=== PATIENT | male | born 1950 | race Two or more races ===

== ENCOUNTER 2017-08-23 05:40 | Emergency (ER) | payer OTHER ==
[~2017-08-23] VITALS: Ht 172.7 cm; Wt 76.2 kg
[~2017-08-23 05:40] MED LIST: ACIDOPHILUS CA1 EACH PO; ALBUTEROL0.63 MG/3; AVELOX ABC PAC400 MG; BUDEO.25; GLUCOPHAGE XR500 MG PO; LEVSIN/SL0.125 MG PO; SYNTHROID150 MCG; SYNTHROID175 MCG
[2017-08-23] MEDS ORDERED: SYMBICORT 16010.2 GM (05:46)
[2017-08-23] MEDS ORDERED: MEDROLPACK PO (23:08)
[2017-08-23] MEDS ORDERED: TESSALON PERLE100 M1 PO (23:08)
[2017-08-23] MEDS ORDERED: OSEL75CA PO (23:08)
== END 2017-08-23 23:04 | disposition home or self-care (01) ==
LOC: ER 05:40
DX: J09.X2 Influenza due to identified novel influenza A virus with other respiratory manifestations (principal); J45.901 Unspecified asthma with (acute) exacerbation

== ENCOUNTER 2023-04-07 15:47 | Inpatient (IN) | payer OTHER ==
[~2023-04-07] VITALS: Ht 175.3 cm; Wt 90.7 kg
[~2023-04-07 15:47] MED LIST changes: +MEDROLPACK PO; +OSEL75CA PO; +SYMBICORT 16010.2 GM; +TESSALON PERLE100 M1 PO
--- NOTE | 2023-04-07 16:19 | NUR ---
SE RECIBE PTE MASCULINO DE 72 ANOS ALERTA Y ORIENTADO X3 QUIEN AL MOEMNTO REFIERE DOLOR INTENSO EN ABDOMEN CUADRANTE INFERIOR DERECHO ANISHA A PALPACION SE OBSERBA ABDOMEN DISTENDIDO SE MONITOREAN S/V Y SE UBICA EN K7.
[2023-04-07 16:46] LABS: HEMATOCRIT 43.3 % (39.0-48.0); HEMOGLOBIN 14.3 g/dL (13-16.00); MEAN CELL VOLUME 89.3 fL (80.0-100.00); MEAN CORPUSCULAR HEMOGLOBIN 29.4 pg (27.00-32.0); MEAN CORPUSCULAR HGB CONC 32.9 g/dl (32.0-36.0); PLATELET COUNT 213 K/uL (150-450); RED BLOOD COUNT 4.85 M/uL (4.00-6.00); RED CELL DISTRIBUTION WIDTH 14.2 % (11.5-14.5)
[2023-04-07 17:01] LABS: PH,URINE 7.5 (5.0-8.0); URINE APPEARANCE Clear; URINE BILIRRUBIN Negative (NEGATIVE); URINE BLOOD Negative; URINE COLOR Dark Yellow; URINE GLUCOSE Negative (NEGATIVE); URINE LEUKOCYTE Small; URINE NITRATE Negative; URINE PROTEIN Trace (NEGATIVE)
[2023-04-07 17:02] LABS: URINE BACTERIA 53.1 uL (0.0-1933); URINE EPITHELIAL CELLS 6.1 uL (0.0-38.8); URINE RBC 13.4 uL (0.0-20.8); URINE WBC 52.1 uL (0.0-23.2)
[2023-04-07 17:09] LABS: ALBUMIN 2.8 gm/dL (3.4-5.0); BILIRUBIN TOTAL 1.13 mg/dL (0.3-1.2); CALCIUM 8.2 mg/dL (8.5-10.1); CREATININE SERUM 0.7 mg/dL (0.70-1.30); GFR 110.54; GLOBULINA 3.7 G/DL (2.4-3.5); TOTAL PROTEIN 6.5 gm/dL (6.4-8.2)
--- NOTE | 2023-04-07 17:10 | NUR ---
PTE EVALUADO POR MD [facility] [place] MED A PTE. SE EDUCA A PTE SOBRE EL MSIMO Y REFIERE ENTEDER. SE REALIZA VENOPUNCION BAJO MEDDIAS ACEPTICAS. PTE PEND A RESULTADOS DE LAB Y REALIZACION DE CT Y [place].
[2023-04-07 17:24] LABS: POTASSIUM 2.89 mEq/L (3.5-5.1)
[2023-04-08 01:15] LABS: INR 1.09; PARTIAL THROMBOPLASTIN TIME 29.1 SECONDS (22.0-34.0); PROTHROMBIN TIME 11.4 SECONDS (9.0-11.5)
[2023-04-08 07:22] LABS: ABG PH 7.396 (7.35-7.45); ABG PO2 58.4 mmHg (80-100); ABG pCO2 39.8 mmHg (35-45); SaO2 89.7 %
[2023-04-08 07:23] LABS: BASE EXCESS -0.8 mmol/l; BICARBONATE 23.9 mmol/l (23-25); Tco2 25.1 mmol/l; allen test SATISFACTORY; o2 21 %; puncture site RADIAL RIGHT
[2023-04-08 07:31] LABS: HEMATOCRIT 45.5 % (39.0-48.0); HEMOGLOBIN 15.7 g/dL (13-16.00); MEAN CELL VOLUME 88.4 fL (80.0-100.00); MEAN CORPUSCULAR HEMOGLOBIN 30.4 pg (27.00-32.0); MEAN CORPUSCULAR HGB CONC 34.4 g/dl (32.0-36.0); PLATELET COUNT 208 K/uL (150-450); RED BLOOD COUNT 5.15 M/uL (4.00-6.00); RED CELL DISTRIBUTION WIDTH 14.6 % (11.5-14.5)
[2023-04-08] MEDS ORDERED: SERTRALINE HCL25 MG (14:43)
[2023-04-08] MEDS ORDERED: PANTOPRAZOLE SO40 MG (14:43)
[2023-04-08] MEDS ORDERED: METHYLPREDNISOLO4 MG (14:43)
[2023-04-08] MEDS ORDERED: SYMBICORT 16010.2 GM (14:43)
[2023-04-08] MEDS ORDERED: DONEPEZIL HCL5 MG (14:43)
[2023-04-08] MEDS ORDERED: DICYCLOMINE HCL20 MG (14:43)
[2023-04-09 10:35] LABS: ABG PO2 76.9 mmHg (80-100); ABG pCO2 30.6 mmHg (35-45); BASE EXCESS -10.3 mmol/l; BICARBONATE 14.7 mmol/l (23-25); SaO2 92.9 %; Tco2 15.7 mmol/l; allen test SATISFACTORY; o2 21 %; puncture site RADIAL RIGHT
[2023-04-09 10:41] LABS: HEMATOCRIT 48.2 % (39.0-48.0); HEMOGLOBIN 15.7 g/dL (13-16.00); MEAN CELL VOLUME 91.2 fL (80.0-100.00); MEAN CORPUSCULAR HEMOGLOBIN 29.7 pg (27.00-32.0); MEAN CORPUSCULAR HGB CONC 32.6 g/dl (32.0-36.0); PLATELET COUNT 184 K/uL (150-450); RED BLOOD COUNT 5.29 M/uL (4.00-6.00); RED CELL DISTRIBUTION WIDTH 15.2 % (11.5-14.5)
[2023-04-09 11:11] LABS: ALBUMIN 1.9 gm/dL (3.4-5.0); BILIRUBIN TOTAL 0.59 mg/dL (0.3-1.2); CALCIUM 7.7 mg/dL (8.5-10.1); CREATININE SERUM 2.3 mg/dL (0.70-1.30); GFR 28.01; GLOBULINA 2.9 G/DL (2.4-3.5); POTASSIUM 4.19 mEq/L (3.5-5.1); TOTAL PROTEIN 4.8 gm/dL (6.4-8.2)
[2023-04-09 11:38] LABS: INR 1.26
[2023-04-09 17:09] LABS: ABG PH 7.258 (7.35-7.45); ABG PO2 84.3 mmHg (80-100); ABG pCO2 37.7 mmHg (35-45); BASE EXCESS 93.8 mmol/l; BICARBONATE -9.9 mmol/l (23-25); SaO2 93.8 %; Tco2 16.4 mmol/l; o2 17.6 %
[2023-04-09 17:10] LABS: allen test SATISFACTORY; puncture site RADIAL RIGHT
[2023-04-10 06:21] LABS: HEMATOCRIT 42.3 % (39.0-48.0); HEMOGLOBIN 14.6 g/dL (13-16.00); MEAN CELL VOLUME 88.2 fL (80.0-100.00); MEAN CORPUSCULAR HEMOGLOBIN 30.4 pg (27.00-32.0); MEAN CORPUSCULAR HGB CONC 34.5 g/dl (32.0-36.0); PLATELET COUNT 166 K/uL (150-450); RED BLOOD COUNT 4.79 M/uL (4.00-6.00); RED CELL DISTRIBUTION WIDTH 15.6 % (11.5-14.5)
[2023-04-10 07:35] LABS: ALBUMIN 1.7 gm/dL (3.4-5.0); BILIRUBIN TOTAL 0.38 mg/dL (0.3-1.2); CALCIUM 7.6 mg/dL (8.5-10.1); CREATININE SERUM 2.91 mg/dL (0.70-1.30); GFR 21.35; GLOBULINA 2.7 G/DL (2.4-3.5); MAGNESIUM 1.9 mg/dL (1.8-2.4); POTASSIUM 4.37 mEq/L (3.5-5.1); TOTAL PROTEIN 4.4 gm/dL (6.4-8.2)
[2023-04-11 06:28] LABS: HEMATOCRIT 41.2 % (39.0-48.0); HEMOGLOBIN 13.8 g/dL (13-16.00); MEAN CELL VOLUME 89.1 fL (80.0-100.00); MEAN CORPUSCULAR HEMOGLOBIN 29.8 pg (27.00-32.0); MEAN CORPUSCULAR HGB CONC 33.4 g/dl (32.0-36.0); PLATELET COUNT 166 K/uL (150-450); RED BLOOD COUNT 4.62 M/uL (4.00-6.00); RED CELL DISTRIBUTION WIDTH 15.5 % (11.5-14.5)
[2023-04-11 07:21] LABS: CALCIUM 7.8 mg/dL (8.5-10.1); CREATININE SERUM 1.37 mg/dL (0.70-1.30); GFR 50.93; POTASSIUM 3.42 mEq/L (3.5-5.1)
[2023-04-12 11:25] LABS: HEMATOCRIT 40.2 % (39.0-48.0); HEMOGLOBIN 13.7 g/dL (13-16.00); MEAN CORPUSCULAR HEMOGLOBIN 29.9 pg (27.00-32.0); PLATELET COUNT 165 K/uL (150-450); RED BLOOD COUNT 4.56 M/uL (4.00-6.00); RED CELL DISTRIBUTION WIDTH 15.6 % (11.5-14.5)
[2023-04-12 12:33] LABS: ALBUMIN 1.7 gm/dL (3.4-5.0); CALCIUM 7.8 mg/dL (8.5-10.1); CREATININE SERUM 1.01 mg/dL (0.70-1.30); GFR 72.41; MAGNESIUM 1.7 mg/dL (1.8-2.4); POTASSIUM 3.09 mEq/L (3.5-5.1); T4 TOTAL 4.12 UG/DL (4.5-12.1)
[2023-04-12 12:38] LABS: TSH 5.14 uIU/mL (0.358-3.74)
[2023-04-13 07:58] LABS: HEMATOCRIT 38.8 % (39.0-48.0); HEMOGLOBIN 12.8 g/dL (13-16.00); MEAN CELL VOLUME 88.2 fL (80.0-100.00); MEAN CORPUSCULAR HEMOGLOBIN 29.1 pg (27.00-32.0); PLATELET COUNT 176 K/uL (150-450); RED BLOOD COUNT 4.39 M/uL (4.00-6.00); RED CELL DISTRIBUTION WIDTH 15.1 % (11.5-14.5)
[2023-04-13 08:34] LABS: ALBUMIN 1.5 gm/dL (3.4-5.0); CALCIUM 7.4 mg/dL (8.5-10.1); CREATININE SERUM 0.51 mg/dL (0.70-1.30); GFR 159.31; MAGNESIUM 1.6 mg/dL (1.8-2.4); POTASSIUM 3.22 mEq/L (3.5-5.1)
[2023-04-13 08:59] LABS: CREATININE SERUM 0.51 mg/dL (0.70-1.30); POTASSIUM 3.22 mEq/L (3.5-5.1)
[2023-04-13 09:00] LABS: CALCIUM 6.9 mg/dL (8.5-10.1); GFR 159.31
[2023-04-13 09:25] LABS: PHOSPHOROUS 1.7 mg/dL (2.5-4.9)
[2023-04-14 09:27] LABS: CALCIUM 7.7 mg/dL (8.5-10.1); CREATININE SERUM 0.66 mg/dL (0.70-1.30); GFR 118.31; POTASSIUM 3.13 mEq/L (3.5-5.1)
[2023-04-15 06:49] LABS: HEMATOCRIT 39.4 % (39.0-48.0); HEMOGLOBIN 12.7 g/dL (13-16.00); MEAN CORPUSCULAR HEMOGLOBIN 28.8 pg (27.00-32.0); MEAN CORPUSCULAR HGB CONC 32.3 g/dl (32.0-36.0); PLATELET COUNT 246 K/uL (150-450); RED BLOOD COUNT 4.43 M/uL (4.00-6.00); RED CELL DISTRIBUTION WIDTH 15.3 % (11.5-14.5)
[2023-04-15 07:28] LABS: ALBUMIN 1.6 gm/dL (3.4-5.0); BILIRUBIN TOTAL 0.61 mg/dL (0.3-1.2); CALCIUM 7.3 mg/dL (8.5-10.1); CREATININE SERUM 0.65 mg/dL (0.70-1.30); GFR 120.41; GLOBULINA 2.6 G/DL (2.4-3.5); TOTAL PROTEIN 4.2 gm/dL (6.4-8.2)
[2023-04-15 08:20] LABS: POTASSIUM 2.96 mEq/L (3.5-5.1)
[2023-04-16 07:28] LABS: HEMATOCRIT 36.6 % (39.0-48.0); HEMOGLOBIN 12.2 g/dL (13-16.00); MEAN CELL VOLUME 88.7 fL (80.0-100.00); MEAN CORPUSCULAR HEMOGLOBIN 29.4 pg (27.00-32.0); MEAN CORPUSCULAR HGB CONC 33.2 g/dl (32.0-36.0); PLATELET COUNT 278 K/uL (150-450); RED BLOOD COUNT 4.13 M/uL (4.00-6.00); RED CELL DISTRIBUTION WIDTH 15.2 % (11.5-14.5)
[2023-04-16 07:54] LABS: ALBUMIN 1.6 gm/dL (3.4-5.0); CALCIUM 7.2 mg/dL (8.5-10.1); CREATININE SERUM 0.48 mg/dL (0.70-1.30); GFR 170.85; MAGNESIUM 1.9 mg/dL (1.8-2.4); PHOSPHOROUS 2.2 mg/dL (2.5-4.9); POTASSIUM 3.53 mEq/L (3.5-5.1)
[2023-04-17 22:59] LABS: ABG pCO2 38.9 mmHg (35-45); BASE EXCESS 3.9 mmol/l; BICARBONATE 27.6 mmol/l (23-25); SaO2 94.3 %; Tco2 28.8 mmol/l
[2023-04-17 23:05] LABS: allen test SATISFACTORY; o2 50 %; puncture site RADIAL LEFT
[2023-04-18 07:56] LABS: BILIRUBIN TOTAL 0.42 mg/dL (0.3-1.2); CALCIUM 8.2 mg/dL (8.5-10.1); CREATININE SERUM 0.81 mg/dL (0.70-1.30); GFR 93.41; GLOBULINA 3.1 G/DL (2.4-3.5); POTASSIUM 4.75 mEq/L (3.5-5.1); TOTAL PROTEIN 5.1 gm/dL (6.4-8.2)
[2023-04-18 12:48] LABS: ABG PH 7.439 (7.35-7.45); ABG PO2 69.4 mmHg (80-100); ABG pCO2 41.2 mmHg (35-45); BASE EXCESS 2.8 mmol/l; BICARBONATE 27.3 mmol/l (23-25); SaO2 94.5 %; Tco2 28.5 mmol/l
[2023-04-18 12:50] LABS: allen test SATISFACTORY; o2 32 %; puncture site RADIAL LEFT
[2023-04-19 06:46] LABS: HEMATOCRIT 33.1 % (39.0-48.0); HEMOGLOBIN 10.9 g/dL (13-16.00); MEAN CELL VOLUME 89.2 fL (80.0-100.00); MEAN CORPUSCULAR HEMOGLOBIN 29.4 pg (27.00-32.0); MEAN CORPUSCULAR HGB CONC 32.9 g/dl (32.0-36.0); PLATELET COUNT 445 K/uL (150-450); RED BLOOD COUNT 3.71 M/uL (4.00-6.00); RED CELL DISTRIBUTION WIDTH 15.2 % (11.5-14.5)
[2023-04-19 06:47] LABS: CALCIUM 7.5 mg/dL (8.5-10.1); CREATININE SERUM 0.57 mg/dL (0.70-1.30); GFR 140.12; POTASSIUM 3.74 mEq/L (3.5-5.1)
[2023-04-23 01:00] LABS: TP PLEURAL FLUID 1.4 g/dl
[2023-04-23 01:17] LABS: PLEURAL FLUID COLOR XANTHOCROMIC
[2023-04-23 01:18] LABS: PLEURAL FLUID APPEARANCE HAZY
[2023-04-23 01:47] LABS: MONONUCLEAR 95 %; POLYMORPHONUCLEAR 5 %
[2023-04-23 03:17] LABS: ABG PH 7.511 (7.35-7.45); ABG pCO2 38.8 mmHg (35-45)
[2023-04-23 03:18] LABS: ABG PO2 41.8 mmHg (80-100); BICARBONATE 30.4 mmol/l (23-25); SaO2 83.7 %; Tco2 31.6 mmol/l; allen test SATISFACTORY; o2 40 %; puncture site RADIAL RIGHT
[2023-04-23 07:38] LABS: HEMATOCRIT 36.4 % (39.0-48.0); MEAN CORPUSCULAR HGB CONC 32.2 g/dl (32.0-36.0); PLATELET COUNT 594 K/uL (150-450); RED BLOOD COUNT 4.05 M/uL (4.00-6.00); RED CELL DISTRIBUTION WIDTH 15.1 % (11.5-14.5)
[2023-04-23 07:40] LABS: HEMOGLOBIN 11.7 g/dL (13-16.00); MEAN CORPUSCULAR HEMOGLOBIN 28.8 pg (27.00-32.0)
[2023-04-23 08:24] LABS: ALBUMIN 2.2 gm/dL (3.4-5.0); BILIRUBIN TOTAL 0.27 mg/dL (0.3-1.2); CALCIUM 7.9 mg/dL (8.5-10.1); CREATININE SERUM 0.64 mg/dL (0.70-1.30); GFR 122.59; GLOBULINA 3.2 G/DL (2.4-3.5); POTASSIUM 3.43 mEq/L (3.5-5.1); TOTAL PROTEIN 5.4 gm/dL (6.4-8.2)
[2023-04-24 09:10] LABS: CALCIUM 7.8 mg/dL (8.5-10.1); CREATININE SERUM 0.86 mg/dL (0.70-1.30); GFR 87.17; POTASSIUM 3.69 mEq/L (3.5-5.1)
[2023-04-26 07:51] LABS: HEMATOCRIT 29.1 % (39.0-48.0); HEMOGLOBIN 9.6 g/dL (13-16.00); MEAN CELL VOLUME 89.6 fL (80.0-100.00); MEAN CORPUSCULAR HEMOGLOBIN 29.7 pg (27.00-32.0); MEAN CORPUSCULAR HGB CONC 33.1 g/dl (32.0-36.0); PLATELET COUNT 270 K/uL (150-450); RED BLOOD COUNT 3.25 M/uL (4.00-6.00)
[2023-04-26 08:33] LABS: CALCIUM 7.6 mg/dL (8.5-10.1); CREATININE SERUM 0.54 mg/dL (0.70-1.30); GFR 149.14; POTASSIUM 3.61 mEq/L (3.5-5.1)
[2023-04-27 17:15] LABS: ABG PH 7.473 (7.35-7.45); ABG pCO2 47.2 mmHg (35-45)
[2023-04-27 17:16] LABS: ABG PO2 57.8 mmHg (80-100)
[2023-04-27 17:17] LABS: BASE EXCESS 8.8 mmol/l; BICARBONATE 33.8 mmol/l (23-25); SaO2 92.2 %; Tco2 35.5 mmol/l; allen test SATISFACTORY; o2 21 %; puncture site RADIAL RIGHT
[2023-04-28 07:23] LABS: HEMATOCRIT 29.5 % (39.0-48.0); HEMOGLOBIN 9.8 g/dL (13-16.00); MEAN CELL VOLUME 90.1 fL (80.0-100.00); MEAN CORPUSCULAR HEMOGLOBIN 29.8 pg (27.00-32.0); PLATELET COUNT 213 K/uL (150-450); RED BLOOD COUNT 3.27 M/uL (4.00-6.00); RED CELL DISTRIBUTION WIDTH 14.9 % (11.5-14.5)
[2023-04-28 07:55] LABS: CALCIUM 7.3 mg/dL (8.5-10.1); CREATININE SERUM 0.48 mg/dL (0.70-1.30); GFR 170.85; POTASSIUM 3.59 mEq/L (3.5-5.1)
[2023-04-29 13:54] LABS: HEMATOCRIT 30.7 % (39.0-48.0); HEMOGLOBIN 9.9 g/dL (13-16.00); MEAN CELL VOLUME 89.7 fL (80.0-100.00); MEAN CORPUSCULAR HEMOGLOBIN 28.9 pg (27.00-32.0); MEAN CORPUSCULAR HGB CONC 32.2 g/dl (32.0-36.0); PLATELET COUNT 159 K/uL (150-450); RED BLOOD COUNT 3.43 M/uL (4.00-6.00); RED CELL DISTRIBUTION WIDTH 14.9 % (11.5-14.5)
[2023-04-29 14:36] LABS: ALBUMIN 1.7 gm/dL (3.4-5.0); BILIRUBIN TOTAL 0.19 mg/dL (0.3-1.2); CALCIUM 7.6 mg/dL (8.5-10.1); CREATININE SERUM 0.52 mg/dL (0.70-1.30); GFR 155.78; GLOBULINA 2.9 G/DL (2.4-3.5); POTASSIUM 3.15 mEq/L (3.5-5.1); TOTAL PROTEIN 4.6 gm/dL (6.4-8.2)
[2023-04-29 14:50] LABS: ABG PH 7.502 (7.35-7.45); ABG PO2 48.7 mmHg (80-100); ABG pCO2 45.1 mmHg (35-45); BASE EXCESS 10.1 mmol/l; BICARBONATE 34.6 mmol/l (23-25); SaO2 88.8 %; allen test SATISFACTORY; puncture site RADIAL RIGHT
[2023-04-29 14:51] LABS: o2 32 %
[2023-04-30 06:24] LABS: HEMATOCRIT 28.2 % (39.0-48.0); MEAN CELL VOLUME 88.3 fL (80.0-100.00); MEAN CORPUSCULAR HEMOGLOBIN 30.6 pg (27.00-32.0); MEAN CORPUSCULAR HGB CONC 34.7 g/dl (32.0-36.0); PLATELET COUNT 145 K/uL (150-450); RED CELL DISTRIBUTION WIDTH 15.1 % (11.5-14.5)
[2023-04-30 07:09] LABS: HEMOGLOBIN 9.8 g/dL (13-16.00)
[2023-05-01 06:21] LABS: HEMATOCRIT 30.6 % (39.0-48.0); MEAN CORPUSCULAR HEMOGLOBIN 29.5 pg (27.00-32.0); MEAN CORPUSCULAR HGB CONC 32.8 g/dl (32.0-36.0); PLATELET COUNT 175 K/uL (150-450); RED CELL DISTRIBUTION WIDTH 15.1 % (11.5-14.5)
[2023-05-01 06:43] LABS: ALBUMIN 1.7 gm/dL (3.4-5.0); BILIRUBIN TOTAL 0.33 mg/dL (0.3-1.2); CALCIUM 7.7 mg/dL (8.5-10.1); CREATININE SERUM 0.54 mg/dL (0.70-1.30); GFR 149.14; GLOBULINA 2.9 G/DL (2.4-3.5); MAGNESIUM 1.9 mg/dL (1.8-2.4); POTASSIUM 4.64 mEq/L (3.5-5.1); TOTAL PROTEIN 4.6 gm/dL (6.4-8.2)
[2023-05-02 07:05] LABS: ALBUMIN 1.7 gm/dL (3.4-5.0); BILIRUBIN TOTAL 0.37 mg/dL (0.3-1.2); CALCIUM 7.7 mg/dL (8.5-10.1); CREATININE SERUM 0.57 mg/dL (0.70-1.30); GFR 140.12; GLOBULINA 2.8 G/DL (2.4-3.5); POTASSIUM 4.18 mEq/L (3.5-5.1); TOTAL PROTEIN 4.5 gm/dL (6.4-8.2)
[2023-05-02 13:29] LABS: ALBUMIN 1.9 gm/dL (3.4-5.0); BILIRUBIN TOTAL 0.25 mg/dL (0.3-1.2); CALCIUM 7.8 mg/dL (8.5-10.1); CREATININE SERUM 0.68 mg/dL (0.70-1.30); GFR 114.3; GLOBULINA 3.2 G/DL (2.4-3.5); POTASSIUM 3.98 mEq/L (3.5-5.1); TOTAL PROTEIN 5.1 gm/dL (6.4-8.2)
[2023-05-02 15:32] LABS: ABG PH 7.456 (7.35-7.45); ABG PO2 51.6 mmHg (80-100); BASE EXCESS 6.7 mmol/l; BICARBONATE 31.7 mmol/l (23-25); SaO2 88.8 %; Tco2 33.1 mmol/l; allen test SATISFACTORY; puncture site RADIAL RIGHT
[2023-05-02 15:33] LABS: o2 21 %
== END 2023-05-04 11:49 | disposition home or self-care (01) | DRG 335 ==
LOC: ER 15:47 → SURH 04-08 00:21 → ICU 04-08 00:21 → SURH 04-12 18:55
PROVIDERS: General Practice; Internal Medicine Critical Care Medicine; Internal Medicine Infectious Disease; Internal Medicine Nephrology; Radiology Vascular & Interventional Radiology; Student in an Organized Health Care Education/Training Program; Surgery; ADMIT Internal Medicine; ATTEND Internal Medicine
PROC: BW21YZZ Computerized Tomography (CT Scan) of Abdomen and Pelvis using Other Contrast (ICD-10-PCS; 2023-04-07)
PROC: 4A12X4Z Monitoring of Cardiac Electrical Activity, External Approach (ICD-10-PCS; 2023-04-08)
PROC: 0DTJ0ZZ Resection of Appendix, Open Approach (ICD-10-PCS; 2023-04-09)
PROC: 0DJ60ZZ Inspection of Stomach, Open Approach (ICD-10-PCS; 2023-04-09)
PROC: 0W9J0ZZ Drainage of Pelvic Cavity, Open Approach (ICD-10-PCS; 2023-04-09)
PROC: 3E0F7GC Introduction of Other Therapeutic Substance into Respiratory Tract, Via Natural or Artificial Opening (ICD-10-PCS; 2023-04-09)
PROC: 5A0935A Assistance with Respiratory Ventilation, Less than 24 Consecutive Hours, High Flow/Velocity Cannula (ICD-10-PCS; 2023-04-09)
PROC: BW21YZZ Computerized Tomography (CT Scan) of Abdomen and Pelvis using Other Contrast (ICD-10-PCS; 2023-04-16)
PROC: BB24ZZZ Computerized Tomography (CT Scan) of Bilateral Lungs (ICD-10-PCS; 2023-04-18)
PROC: 0W9F3ZZ Drainage of Abdominal Wall, Percutaneous Approach (ICD-10-PCS; 2023-04-19)
PROC: 0W9B3ZZ Drainage of Left Pleural Cavity, Percutaneous Approach (ICD-10-PCS; 2023-04-22)
PROC: 0WQFXZZ Repair Abdominal Wall, External Approach (ICD-10-PCS; 2023-04-24)
PROC: 0DNN0ZZ Release Sigmoid Colon, Open Approach (ICD-10-PCS; 2023-04-24)
PROC: 0DN80ZZ Release Small Intestine, Open Approach (ICD-10-PCS; principal; 2023-04-24 12:00)
DX: K35.33 Acute appendicitis with perforation, localized peritonitis, and gangrene, with abscess (principal); A41.89 Other specified sepsis; T81.12XA Postprocedural septic shock, initial encounter; N17.0 Acute kidney failure with tubular necrosis; J18.0 Bronchopneumonia, unspecified organism; I97.191 Other postprocedural cardiac functional disturbances following other surgery; I48.20 Chronic atrial fibrillation, unspecified; E87.20 Acidosis, unspecified; J90 Pleural effusion, not elsewhere classified; E87.0 Hyperosmolality and hypernatremia; K56.7 Ileus, unspecified; K91.89 Other postprocedural complications and disorders of digestive system; T81.31XA Disruption of external operation (surgical) wound, not elsewhere classified, initial encounter; L76.32 Postprocedural hematoma of skin and subcutaneous tissue following other procedure; J44.1 Chronic obstructive pulmonary disease with (acute) exacerbation; J45.21 Mild intermittent asthma with (acute) exacerbation; J98.11 Atelectasis; K57.20 Diverticulitis of large intestine with perforation and abscess without bleeding; K66.0 Peritoneal adhesions (postprocedural) (postinfection); I95.89 Other hypotension; E87.6 Hypokalemia; E83.42 Hypomagnesemia; E83.39 Other disorders of phosphorus metabolism; E89.0 Postprocedural hypothyroidism; M54.89 Other dorsalgia; I10 Essential (primary) hypertension; Y83.8 Other surgical procedures as the cause of abnormal reaction of the patient, or of later complication, without mention of misadventure at the time of the procedure; Y92.238 Other place in hospital as the place of occurrence of the external cause; Z85.46 Personal history of malignant neoplasm of prostate; B96.89 Other specified bacterial agents as the cause of diseases classified elsewhere